=== PATIENT | male | born 1970 ===

== ENCOUNTER → 2018-08-07 14:40 | Outpatient (ROUT) | payer SELFPAY ==
[2018-08-07 15:10] LABS: Hematocrit 41.4 % (41-53); Hemoglobin 13.7 g/dL (13.5-17.5)
[2018-08-07 15:27] LABS: Calcium 9.2 mg/dL (8.4-10.2); Magnesium 1.8 mg/dL (1.6-2.3)
[2018-08-07 16:01] LABS: Ferritin 77.4 ng/mL (17.9-464)
[2018-08-07 16:31] LABS: Folate 7.5 ng/mL (2.76-20.0); Vitamin B12 329 pg/mL (239-931)
== END ==
PROVIDERS: Visit Provider Family Medicine
DX: E83.51 Hypocalcemia (principal); E83.42 Hypomagnesemia; D64.9 Anemia, unspecified
CPT/HCPCS: 36415; 82310; 82607; 82728; 82746; 83735; 85014; 85018